=== PATIENT | female | born 1990 | race Caucasian/White ===

== ENCOUNTER 2016-06-15 18:24 | Emergency (ER) | payer OTHER ==
[2016-06-15 18:36] VITALS: PULSE 84; TEMP 98.2; BMI 38.6
--- NOTE | 2016-06-15 19:07 | PDOC ---
History of Present Illness - General Chief Complaint: Pain Stated Complaint: PAIN Time Seen by Provider: 06/15/16 18:43 History Source: Patient Exam Limitations: No Limitations - History of Present Illness Initial Comments: 06/15/16 19:14 Chief complaint: Bilateral neck pain, lower back pain, sore throat, intermittent pain and left thigh and lower leg History of present illness: Patient is a 25-year-old female with a history of anemia and anxiety complaining of bilateral neck pain with muscle tightness since last night with increased pain with movement of neck up and down. Patient denies any radiation of pain down arms or weakness or numbness of arms She also reports having intermittent lower back pain times one month. Patient also reports that she was treated for strep throat 2 weeks ago and continues to have a slight sore throat would like to be rechecked for strep. Patient denies any fever, nasal congestion, or cough. Patient also denies any radiation of pain down the legs and having back pain or any numbness or weakness of her legs. Denies any incontinency or any saddle anesthesia. Patient reports that when she exercises she feels pain in her left thigh and low lower leg independent of having back pain. Timing/Duration: intermittent Severity: moderate Modifying Factors: improves with: other Associated Symptoms: reports: other (neck pain b/l, sore throat intermittently, lower back pain, left leg pain muscle pain independent of back pain ) Past History - Past Medical History Allergies/Adverse Reactions: Allergies Allergy/AdvReac Type Severity Reaction Status Date / Time No Known Allergies Allergy Verified 06/15/16 18:36 Home Medications: Ambulatory Orders No Home Medications 0 dose .ROUTE UTDICT 01/25/13 Cyclobenzaprine HCl [Flexeril -] 10 mg PO Q8H PRN #21 tablet MDD 3 06/15/16 Naproxen [Naprosyn -] 500 mg PO BID PRN #14 tablet MDD 2 06/15/16 Anemia: No Asthma: Yes Cancer: No Cardiac Disorders: No CVA: No COPD: No CHF: No Dementia: No Diabetes: No GI Disorders: No Disorders: No HTN: No Hypercholesterolemia: No Liver Disease: No Psychiatric Problems: Yes (ANXIETY) Seizures: No Thyroid Disease: No - Surgical History Abdominal Surgery: No Appendectomy: No Cardiac Surgery: No Cholecystectomy: No Lung Surgery: No Neurologic Surgery: No Orthopedic Surgery: No - Psycho/Social/Smoking Cessation Hx Anxiety: Yes Suicidal Ideation: No Smoking Status: No Smoking History: Never smoked Have you smoked in the past 12 months: No Number of Cigarettes Smoked Daily: 0 Hx Alcohol Use: Yes (SOCIAL) Drug/Substance Use Hx: No Substance Use Type: None Hx Substance Use Treatment: No Review of Systems - Review of Systems Able to Perform ROS?: Yes Constitutional: No: Symptoms Reported HEENTM: Yes: Throat Pain Respiratory: No: Symptoms reported Cardiac (ROS): No: Symptoms Reported ABD/GI: No: Symptoms Reported : No: Symptoms Reported Musculoskeletal: Yes: Back Pain (lower b/l intermittent for few weeks, intermittent left thigh lower leg pain), Muscle Pain (left thigh, lower leg pain intermittent) Integumentary: No: Symptoms Reported Neurological: No: Symptoms reported *Physical Exam - Vital Signs Last Vital Signs Temp Pulse Resp BP Pulse Ox 98.2 F 84 20 172/99 100 06/15/16 18:32 06/15/16 18:32 06/15/16 18:32 06/15/16 18:32 06/15/16 18:32 - Physical Exam General Appearance: Yes: Appropriately Dressed HEENT: positive: TMs Normal. negative: Pharyngeal Erythema, Tonsillar Exudate, Tonsillar Erythema, Nasal Congestion, Rhinorrhea Neck: positive: Tender lateral (b/l ). negative: Tender, Lymphadenopathy (R), Lymphadenopathy (L), Tender midline Respiratory/Chest: positive: Lungs Clear, Normal Breath Sounds. negative: Chest Tender, Respiratory Distress Cardiovascular: positive: Regular Rhythm, Regular Rate, S1, S2 Musculoskeletal: positive: Normal Inspection, Other (b/l paraspinal muscle lumbar ). negative: CVA Tenderness, CVA Tenderness (R), CVA Tenderness (L), Decreased Range of Motion, Vertebral Tenderness Extremity: positive: Normal Capillary Refill, Normal Inspection, Normal Range of Motion (legs/arms ). negative: Tender, Swelling Integumentary: positive: Normal Color Neurologic: positive: Alert, Normal Response, Motor Strength 5/5, Respond to painful stimul, Responsive, Other (negative SLR b/l ). negative: Numbness, Sensory Deficit (legs arms ) Medical Decision Making - Medical Decision Making 06/15/16 19:16 Patient is a 25-year-old female with a history of anemia and anxiety complaining of bilateral neck pain with muscle tightness since last night with increased pain with movement of neck up and down. Patient denies any radiation of pain down arms or weakness or numbness of arms She also reports having intermittent lower back pain times one month. Patient also reports that she was treated for strep throat 2 weeks ago and continues to have a slight sore throat would like to be rechecked for strep. Patient denies any fever, nasal congestion , or cough. Patient also denies any radiation of pain down the legs and having back pain or any numbness or weakness of her legs. Denies any incontinency or any saddle anesthesia. Patient reports that when she exercises she feels pain in her left thigh and low lower leg independent of having back pain. Does not have any pain in her left thigh or lower leg presently. Bilateral neck pain and strain with muscle tightness intermittent lower back pain without radiation down her legs Pharyngitis rule out strep throat Plan: Urine hCG negative Throat C&S rapid negative toradol 60 mg IM Flexeril 10 mg by mouth now than q8 hrs prn muscle spasm X 20 naprosyn 500 mg bid prn pain for 7 days follow up with ortho 06/15/16 19:39 06/15/16 19:39 06/15/16 19:52 *DC/Admit/Observation/Transfer Diagnosis at time of Disposition: Low back pain Qualifiers: Chronicity: unspecified Back pain laterality: bilateral Sciatica presence: without sciatica Qualified Code(s): M54.5 - Low back pain Neck muscle strain Qualifiers: Encounter type: initial encounter Qualified Code(s): S16.1XXA - Strain of muscle, fascia and tendon at neck level, initial encounter Pharyngitis Qualifiers: Pharyngitis/tonsillitis etiology: unspecified etiology Qualified Code(s): J02.9 - Acute pharyngitis, unspecified - Discharge Dispostion Disposition: HOME Condition at time of disposition: Stable - Prescriptions Prescriptions: Cyclobenzaprine HCl [Flexeril -] 10 mg PO Q8H PRN #21 tablet MDD 3 PRN Reason: Muscle Spasms Naproxen [Naprosyn -] 500 mg PO BID PRN #14 tablet MDD 2 PRN Reason: Pain - Referrals Referrals: Segundo Eaton [Primary Care Provider] - Héctor Castro MD [Staff Physician] - - Patient Instructions Additional Instructions: Avoid strenuous activities and exercise follow-up with orthopedist for further evaluation within the next few days Return to emergency room if pain worsens any numbness of arms or legs or groin or worsening pain Today your throat culture was negative for strep throat Patient voiced understanding of discharge instructions and all questions were answered
[2016-06-15 19:24] VITALS: BP 130/90
[2016-06-15] MEDS ORDERED: CYCLOBENZAPRINE HCL 10 MG TABLET (FP) PO ONE (19:41)
[2016-06-15] MEDS ORDERED: KETOROLAC TROMETHAMINE 60 MG/2 ML VIAL IM ONE (19:41)
[2016-06-15] MEDS ORDERED: CYCLOBENZAPRINE HCL 10 MG TABLET (FP) ONE (19:43)
[2016-06-15] MEDS ORDERED: KETOROLAC TROMETHAMINE 60 MG/2 ML VIAL ONE (19:43)
== END 2016-06-15 19:57 | disposition home or self-care (01) ==
LOC: JERFT 18:24
PROC: 3E0233Z Introduction of Anti-inflammatory into Muscle, Percutaneous Approach (ICD-10-PCS; principal; 2016-06-15)
DX: M54.5 Low back pain (principal); S16.1XXA Strain of muscle, fascia and tendon at neck level, initial encounter; J02.9 Acute pharyngitis, unspecified; X58.XXXA Exposure to other specified factors, initial encounter; Y93.89 Activity, other specified; Y92.9 Unspecified place or not applicable; F41.9 Anxiety disorder, unspecified; J45.909 Unspecified asthma, uncomplicated; D64.9 Anemia, unspecified
CPT/HCPCS: 84703; 87070; 87430; 96372; 99281-25

== ENCOUNTER 2016-09-10 11:47 | Emergency (ER) | payer OTHER ==
[2016-09-10 11:55] VITALS: BMI 35.7
[2016-09-10] MEDS ORDERED: SODIUM CHLORIDE 1,000 ML IV ONE (12:32)
[2016-09-10] MEDS ORDERED: methylPREDNISolone NA SUCC 125 MG/2 ML VIAL IVPB ONE (12:32)
--- NOTE | 2016-09-10 12:39 | PDOC ---
History of Present Illness - General History Source: Patient Exam Limitations: No Limitations - History of Present Illness Initial Comments: 09/10/16 13:30 The patient is a 24 year old female, with a significant past medical history of asthma and anxiety, who presents to the emergency department with bilateral flank pain, nausea, vomit, fever, diarrhea and dark urine for the past 2 days. She states that her fevers are subjective and reports chills associated with her chief complaint. She also reports that she is having dizziness, which she associates to her chief complaints. She describes her diarrhea as nonbloody. She describes her vomit as nonbloody and nonbilious. She notes that she has had asthma exacerbations before but has not been hospitalized since she was a child. The patient denies chest pain, shortness of breath, headache, dysuria, frequency , urgency and hematuria. Allergies: None Past surgical history: None reported Social history: Social alcohol. No tobacco or drug use reported <Clayton Eaton - Last Filed: 09/10/16 13:30> <Gumaro Haider - Last Filed: 09/10/16 15:45> - General Chief Complaint: Pain, Acute Stated Complaint: BACK PAIN/ VOMITING Time Seen by Provider: 09/10/16 12:05 Past History <Clayton Eaton - Last Filed: 09/10/16 13:30> - Past Medical History Anemia: No Asthma: Yes Cancer: No Cardiac Disorders: No CVA: No COPD: No CHF: No Dementia: No Diabetes: No GI Disorders: No Disorders: No HTN: No Hypercholesterolemia: No Liver Disease: No Psychiatric Problems: Yes (ANXIETY) Seizures: No Thyroid Disease: No - Surgical History Abdominal Surgery: No Appendectomy: No Cardiac Surgery: No Cholecystectomy: No Lung Surgery: No Neurologic Surgery: No Orthopedic Surgery: No - Psycho/Social/Smoking Cessation Hx Anxiety: Yes Suicidal Ideation: No Smoking Status: No Smoking History: Never smoked Have you smoked in the past 12 months: No Number of Cigarettes Smoked Daily: 0 Hx Alcohol Use: No Drug/Substance Use Hx: No Substance Use Type: None Hx Substance Use Treatment: No <Gumaro Haider - Last Filed: 09/10/16 15:45> - Past Medical History Allergies/Adverse Reactions: Allergies Allergy/AdvReac Type Severity Reaction Status Date / Time No Known Allergies Allergy Verified 09/10/16 11:52 Home Medications: Ambulatory Orders Albuterol 0.083% Nebulizer K[place] [Ventolin 0.083% Nebulizer Soln -] 1 neb NEB QID 09/10/16 Prednisone [Deltasone -] 60 mg PO DAILY #15 tablet 09/10/16 Review of Systems - Review of Systems Constitutional: Yes: Chills. No: Fever HEENTM: Yes: Nose Congestion, Throat Pain Respiratory: Yes: Cough, Shortness of Breath Cardiac (ROS): No: Chest Pain, Edema ABD/GI: Yes: Diarrhea, Nausea, Vomiting : Yes: Flank Pain. No: Dysuria, Frequency Musculoskeletal: Yes: Muscle Pain Neurological: No: Headache All Other Systems: Reviewed and Negative <Gumaro Haider - Last Filed: 09/10/16 15:45> *Physical Exam - Vital Signs Last Vital Signs Temp Pulse Resp BP Pulse Ox 98.7 F 109 H 18 123/74 99 09/10/16 11:52 09/10/16 11:52 09/10/16 11:52 09/10/16 11:52 09/10/16 11:52 - Physical Exam Comments: 09/10/16 13:30 GENERAL: The patient is awake, alert, and fully oriented, in no acute distress. HEAD: Normal with no signs of trauma. EYES: Pupils equal, round and reactive to light, extraocular movements intact, sclera anicteric, conjunctiva clear with no pallor. ENT: Ears normal, nares patent, oropharynx clear without exudates. Moist mucous membranes. NECK: Normal range of motion, supple without lymphadenopathy, JVD, or masses. LUNGS: +Dry wheeing cough, expiratory nd inspiratory wheezing No focal decrease breath sound buts there is prolonged expiration. HEART: Regular rate and rhythm, normal S1 and S2 without murmur or rub. ABDOMEN: Soft/nontender/nondistended. BS wnl. No guarding or rebound. No palpable masses. No hepatosplenomegaly. EXTREMITIES: Normal range of motion, no edema. No clubbing or cyanosis. No cords , erythema, or tenderness. MUSCULOSKELETAL: No CVA tenderness. NEUROLOGICAL: Cranial nerves II through XII grossly intact. Normal speech, normal gait. PSYCH: Normal mood, normal affect. SKIN: Warm, Dry, normal turgor, no rashes or lesions noted. <Clayton Eaton - Last Filed: 09/10/16 13:30> - Vital Signs Last Vital Signs Temp Pulse Resp BP Pulse Ox 98.7 F 109 H 18 123/74 99 09/10/16 11:52 09/10/16 11:52 09/10/16 11:52 09/10/16 11:52 09/10/16 11:52 <Gumaro Hiader - Last Filed: 09/10/16 15:45> ED Treatment Course - LABORATORY CBC & Chemistry Diagram: 09/10/16 12:39 09/10/16 12:58 - ADDITIONAL ORDERS Additional order review: Laboratory Results 09/10/16 12:18 Urine Color Ltyellow Urine Appearance Clear Urine pH 5.0 Ur Specific [place] 1.025 Urine Protein Negative Urine Glucose (UA) Negative Urine Ketones Negative Urine Blood Negative Urine Nitrite Negative Urine Bilirubin Negative Urine Urobilinogen Negative Ur Leukocyte Esterase Negative Urine HCG, Qual Negative 09/10/16 12:39 Influenza Types A,B Antigen (HEMAL) - Final Nasopharyngeal Swab - Final 09/10/16 12:39 RBC 4.48 MCV 86.9 MCHC 33.1 RDW 13.4 MPV 8.9 Neutrophils % 75.7 Lymphocytes % 14.5 D Monocytes % 5.8 Eosinophils % 3.2 Basophils % 0.8 - Medications Given in the ED: ED Medications Discontinued Medications Generic Name Dose Route Start Last Admin Trade Name Freq PRN Reason Stop Dose Admin Albuterol/Ipratropium 1 amp 09/10/16 12:45 09/10/16 13:16 Duoneb - NEB 09/10/16 13:16 1 amp Q15M CRIS Administration Methylprednisolone Sodium Succinate 125 mg 09/10/16 12:32 09/10/16 13:07 Solu-Medrol - IVPB 09/10/16 12:33 125 mg ONCE ONE Administration <Clayton Eaton - Last Filed: 09/10/16 13:30> - LABORATORY CBC & Chemistry Diagram: 09/10/16 12:39 09/10/16 12:58 <Gumaro Haider - Last Filed: 09/10/16 15:45> Medical Decision Making - Medical Decision Making 09/10/16 12:36 A portion of this note was documented by scribe services under my direction. I have reviewed the details of the note, within reason, and agree with the documentation with the following case summary and management plan written by me. 26-year-old female with history of asthma presents with 2-3 days of initially URI symptoms, then gastroenteritis type symptoms of nonbloody nausea/vomiting/ diarrhea without abdominal pain, and now asthma exacerbation in the setting of all of this with increasing dry cough and wheezing. No recent travel, works in a die stamping press operator's office. Last admitted for asthma as a teenager, also has seasonal ALLERGIES as a trigger in addition to URI. Vitals as noted, mild tachycardia. Dry cough with audible wheezing Abdomen is benign No edema 26-year-old female with viral syndrome, URI symptoms and gastroenteritis type symptoms without other red flags on history or physical exam. Rule out influenza. This is also prompted an asthma exacerbation, mild to moderate respiratory distress but generally well-appearing. Labs, urinalysis to rule out UTI/pyelonephritis Chest x-ray Nebulizers, IV steroids IV fluids Reassess and dispo accordingly 09/10/16 14:07 WBC 13, labs otherwise normal. UA clear, urine negative. Flu negative. CXR pending, dispo accordingly. 09/10/16 15:42 Feels much better, wheezing has improved, chest x-ray without acute infiltrate. Agrees with discharge plan on steroids, has nebulizer at home, understands return criteria. <Gumaro Haider - Last Filed: 09/10/16 15:45> *DC/Admit/Observation/Transfer - Attestations Scribe Attestion: 09/10/16 13:31 Documentation prepared by Clayton Eaton, acting as medical concierge for Gumaro Haider MD <Clayton Eaton - Last Filed: 09/10/16 13:30> <Gumaro Haider - Last Filed: 09/10/16 15:45> Diagnosis at time of Disposition: Asthma exacerbation Upper respiratory infection Qualifiers: URI type: unspecified viral URI Qualified Code(s): J06.9 - Acute upper respiratory infection, unspecified - Discharge Dispostion Disposition: HOME Condition at time of disposition: Improved - Prescriptions Prescriptions: Prednisone [Deltasone -] 60 mg PO DAILY #15 tablet - Referrals Referrals: Segundo Eaton [Primary Care Provider] - - Patient Instructions Printed Discharge Instructions: DI for Viral Upper Respiratory Infection -- Adult, DI for Asthma -- Adult Additional Instructions: Activity as tolerated. Stay hydrated. Your symptoms are mostly due to an asthma flare from a viral infection and seasonal ALLERGIES. Take prednisone as prescribed for 5 more days, use home nebulizer as previously prescribed. Continue your medications as previously prescribed by your physician. You should follow up with your primary doctor as soon as possible regarding today's emergency department visit. Return to the emergency department for any new or concerning symptoms, particularly difficulty breathing, fevers or chills, chest pain.
[2016-09-10 12:40] LABS: URINE APPEARANCE CLEAR; URINE BILIRUBIN NEGATIVE (NEGATIVE); URINE BLOOD NEGATIVE (NEGATIVE); URINE COLOR LTYELLOW; URINE GLUCOSE (UA) NEGATIVE (NEGATIVE); URINE KETONE NEGATIVE (NEGATIVE); URINE LEUK ESTERASE NEGATIVE (NEGATIVE); URINE NITRITE NEGATIVE (NEGATIVE); URINE PROTEIN NEGATIVE (NEGATIVE); URINE UROBILINOGEN NEGATIVE E.U./dl (0.2-1.0)
[2016-09-10] MEDS: ALBUTEROL SO4 2.5/IPRATROPIUM 0.5 INH SOL 3 ML VIAL.NEB. NEB SCH ×3 (12:45→13:16)
[2016-09-10] MEDS ORDERED: ALBUTEROL SO4 2.5/IPRATROPIUM 0.5 INH SOL 3 ML VIAL.NEB. NEB ONE (12:59)
[2016-09-10] MEDS ORDERED: methylPREDNISolone NA SUCC 125 MG/2 ML VIAL ONE (13:00)
[2016-09-10 13:10] LABS: BASOPHIL 0.8 % (0-2.0); EOSINOPHIL 3.2 % (0-4.5); MCH 28.8 pg (25.7-33.7); MCHC 33.1 g/dl (32.0-36.0); MEAN CELL VOLUME 86.9 fl (80-96); MEAN PLT VOLUME 8.9 fl (7.5-11.1); NEUTROPHILS 75.7 % (42.8-82.8); PLATELET COUNT 207 K/MM3 (134-434); RDW 13.4 % (11.6-15.6)
[2016-09-10 13:41] LABS: ALBUMIN 3.7 g/dl (3.4-5.0); ALK PHOS 118 U/L (45-117); ANION GAP 9 (8-16); BILIRUBIN,TOTAL 0.4 mg/dL (0.2-1.0); CALCIUM 9.1 mg/dL (8.5-10.1); CO2 28 mmol/L (21-32); CREATININE 0.7 mg/dL (0.55-1.02); GLUCOSE,RANDOM 77 mg/dL (74-106); SGOT/AST 21 U/L (15-37); SGPT/ALT 37 U/L (12-78); TOT PROT 7.2 g/dl (6.4-8.2)
[2016-09-10] MEDS ORDERED: KETOROLAC TROMETHAMINE 30 MG/1 ML VIAL IVPUSH ONE (14:11)
[2016-09-10] MEDS ORDERED: KETOROLAC TROMETHAMINE 30 MG/1 ML VIAL ONE (14:15)
[2016-09-10 16:06] VITALS: BP 123/77; PULSE 92; TEMP 98.3
== END 2016-09-10 16:06 | disposition home or self-care (01) ==
LOC: JER 11:47
PROC: 3E0F7GC Introduction of Other Therapeutic Substance into Respiratory Tract, Via Natural or Artificial Opening (ICD-10-PCS; principal; 2016-09-10)
PROC: 3E0333Z Introduction of Anti-inflammatory into Peripheral Vein, Percutaneous Approach (ICD-10-PCS; 2016-09-10)
DX: J45.901 Unspecified asthma with (acute) exacerbation (principal); J06.9 Acute upper respiratory infection, unspecified
CPT/HCPCS: 36415; 71020-TC; 80053; 81003; 84703; 85025; 87086; 87804; 94640; 96374; 96375; 99284-25

== ENCOUNTER 2016-09-14 15:33 | Emergency (ER) | payer OTHER ==
[2016-09-14 15:40] VITALS: BP 148/104; PULSE 98; TEMP 98.3; BMI 35.7
--- NOTE | 2016-09-14 16:54 | PDOC ---
History of Present Illness - General Chief Complaint: Asthma Stated Complaint: ASTHMA ATTACK Time Seen by Provider: 09/14/16 16:19 History Source: Patient Exam Limitations: No Limitations - History of Present Illness Initial Comments: 09/14/16 16:48 26 yr female with history of asthma currently on prednisone 60mg daily day 5 was doing better until today at work pt inhaled second hand cigarette smoke that caused her to have a cough attack and wheezing. pt used her inhaler feels better on arrival. Pt c/o fever last night productive green phlegm and constant cough that is keeping her up at night. no history of intubations or hospitalizations. Pt has no other medical history. Severity: reports: moderate Past History - Past Medical History Allergies/Adverse Reactions: Allergies Allergy/AdvReac Type Severity Reaction Status Date / Time No Known Allergies Allergy Verified 09/14/16 15:37 Home Medications: Ambulatory Orders Albuterol 0.083% Nebulizer Kelsey [Ventolin 0.083% Nebulizer Soln -] 1 neb NEB QID 09/10/16 Prednisone [Deltasone -] 60 mg PO DAILY #15 tablet 09/10/16 Azithromycin [Zithromax 250mg Tablets -] 250 mg PO UTDICT #6 tab 09/14/16 Benzonatate [Tessalon Pearls -] 100 mg PO TID PRN #21 capsule 09/14/16 Anemia: No Asthma: Yes Cancer: No Cardiac Disorders: No CVA: No COPD: No CHF: No Dementia: No Diabetes: No GI Disorders: No Disorders: No HTN: No Hypercholesterolemia: No Liver Disease: No Psychiatric Problems: Yes (ANXIETY) Seizures: No Thyroid Disease: No - Surgical History Abdominal Surgery: No Appendectomy: No Cardiac Surgery: No Cholecystectomy: No Lung Surgery: No Neurologic Surgery: No Orthopedic Surgery: No - Psycho/Social/Smoking Cessation Hx Anxiety: Yes Suicidal Ideation: No Smoking Status: No Smoking History: Never smoked Have you smoked in the past 12 months: No Number of Cigarettes Smoked Daily: 0 Hx Alcohol Use: No Drug/Substance Use Hx: No Substance Use Type: None Hx Substance Use Treatment: No Respiratory Specific PMHX - Complaint Specific PMHX Angina: No Bronchitis: Yes Pneumonia: No Pulmonary Embolus: No TB (Tuberculosis): No Review of Systems - Review of Systems Able to Perform ROS?: Yes Is the patient limited [place] proficient: No Constitutional: No: Symptoms Reported HEENTM: Yes: Symptoms Reported Respiratory: Yes: Symptoms reported *Physical Exam - Vital Signs Last Vital Signs Temp Pulse Resp BP Pulse Ox 98.3 F 98 H 19 148/104 99 09/14/16 15:37 09/14/16 15:37 09/14/16 15:37 09/14/16 15:37 09/14/16 15:37 - Physical Exam General Appearance: Yes: Nourished, Appropriately Dressed, Obese HEENT: positive: EOMI, HADLEY, TMs Normal, Pharynx Normal, Nasal Congestion Neck: positive: Supple Respiratory/Chest: positive: Lungs Clear, Normal Breath Sounds, Other ( productive cough ). negative: Wheezing Cardiovascular: positive: Regular Rhythm, Regular Rate Gastrointestinal/Abdominal: positive: Normal Bowel Sounds, Soft Musculoskeletal: positive: Normal Inspection Extremity: positive: Normal Capillary Refill, Normal Inspection, Normal Range of Motion Medical Decision Making - Medical Decision Making 09/14/16 16:51 cc: asthma exacerbation brought on by second hand smoke pt was wheezing used her inhaler had a duoneb treatment in triage. pt on my exam has no wheezing, speaking full sentences will give motrin and robitussin for cough 09/14/16 18:00 pt improved states she feels better . will dc home *DC/Admit/Observation/Transfer Diagnosis at time of Disposition: Asthma exacerbation - Discharge Dispostion Disposition: HOME Condition at time of disposition: Improved - Prescriptions Prescriptions: Benzonatate [Tessalon Pearls -] 100 mg PO TID PRN #21 capsule PRN Reason: Cough Azithromycin [Zithromax 250mg Tablets -] 250 mg PO UTDICT #6 tab - Referrals Referrals: [facility] [Provider Group] - Patient Instructions Additional Instructions: drink pleanty of fluids rest at home take Zpack as directed aleyda burton for coughing continue prednisone and inhalers follow with your doctor or at the [facility] clinic Monday Return if any worsening symptoms - Post Discharge Activity Work/School Note: Back to Work
[2016-09-14] MEDS ORDERED: IBUPROFEN 400 MG TABLET (FP) PO ONE (17:13)
[2016-09-14] MEDS: IBUPROFEN 600 MG TABLET (FP) PO ONE (17:14)
[2016-09-14] MEDS ORDERED: guaiFENesin/CODEINE 5 ML UNIT-DOSE CUPS PO ONE (17:19)
[2016-09-14] MEDS: guaiFENesin/CODEINE 5 ML UNIT-DOSE CUPS PO STA (17:23)
== END 2016-09-14 18:10 | disposition home or self-care (01) ==
LOC: JERFT 15:33
DX: J45.901 Unspecified asthma with (acute) exacerbation (principal)
CPT/HCPCS: 99281-25